=== PATIENT | male | born 1955 | race Caucasian/White ===

== ENCOUNTER 2017-05-26 18:04 | Inpatient (IN) | payer MEDICARE, OTHER ==
[~2017-05-26] VITALS: Ht 167.6 cm; Wt 95.3 kg
[~2017-05-26 18:04] MED LIST: ASPI-991 PO; Blood Sugar Diagnostic IN; CHLO25TA13 PO; DIVA250T4 PO; Folic Acid PO; LIDO30AD10 TP; METO25TA20 PO; Metformin Hcl PO; PANT40TA2 PO; THIA100T13 PO
[2017-05-26] MEDS ORDERED: HYDR-552 PO (20:27)
[2017-05-26] MEDS ORDERED: MAGNESIUM HYDROXIDE 30 ML UDC PO PRN (21:00)
[2017-05-26] MEDS ORDERED: LORAZEPAM 0.5 MG TABLET PO PRN (21:00)
[2017-05-26] MEDS ORDERED: ACETAMINOPHEN 325 MG TABLET PO PRN (21:00)
[2017-05-26] MEDS ORDERED: MAG HYDROX/AL HYDROX/SIMETH 30 ML UDC PO PRN (21:00)
[2017-05-26 21:10] VITALS: BP 142/82
[2017-05-26] MEDS ORDERED: CARB1TAB24 PO (21:34)
[2017-05-26] MEDS: LIDOCAINE 5% (PATCH) 1 EA PATCH TP SCH (22:00)
[2017-05-26] MEDS ORDERED: [UNRECOGNIZED DRUG - OTHER] IN SCH (22:00)
[2017-05-26] MEDS ORDERED: DEXTROSE 50%-WATER 50 ML DISP.SYRIN IV PRN (22:30)
[2017-05-26] MEDS ORDERED: LIDOCAINE 5% (PATCH) 1 EA PATCH TP ONE (22:37)
[2017-05-26] MEDS ORDERED: HYDROCODONE/APAP 5/325MG 1 EACH TABLET ONE (22:42)
[2017-05-26] MEDS: HYDROCODONE/APAP 5/325MG 1 EACH TABLET PO PRN (22:52)
[2017-05-26] MEDS: *INSULIN REGULAR(HUMULIN R)HUM 100 UNIT/ML VIAL SQ PRN (23:03)
[2017-05-27 00:08] VITALS: BP 142/82
[2017-05-27] MEDS ORDERED: HYDROCODONE/APAP 5/325MG 1 EACH TABLET ONE (06:12)
[2017-05-27] MEDS: BLOOD SUGAR DIAGNOSTIC 1 EACH STRIP VI SCH ×4 (07:30→20:27)
[2017-05-27 07:43] LABS: ALBUMIN 3.3 g/dL (3.4-5.0); BILIRUBIN,TOTAL 0.3 mg/dL (0.2-1.0); CALCIUM, SERUM 8.4 mg/dL (8.5-10.1); CREATININE 0.7 mg/dL (0.6-1.3); TOTAL PROTEIN, SERUM 6.6 g/dL (6.4-8.2)
[2017-05-27] MEDS: CARBIDOPA/LEVODOPA 25/250 MG 1 UDTAB PO SCH ×3 (08:46→17:03)
[2017-05-27] MEDS: FOLIC ACID 1 MG TABLET PO SCH (08:46)
[2017-05-27] MEDS: PANTOPRAZOLE 40 MG TABLET.DR PO SCH (08:46)
[2017-05-27] MEDS: ASPIRIN EC 81 MG TABLET.DR PO SCH (08:47)
[2017-05-27] MEDS: METOPROLOL TARTRATE 25 MG TABLET PO SCH ×2 (08:47→21:27)
[2017-05-27] MEDS: THIAMINE HCL 100 MG TABLET PO SCH (08:47)
[2017-05-27] MEDS: METFORMIN 500 MG TABLET PO SCH ×2 (08:47→17:10)
[2017-05-27] MEDS: chlorproMAZINE HCL 25 MG TABLET PO SCH ×4 (09:00→17:03)
[2017-05-27 09:03] VITALS: BP 130/81
[2017-05-27] MEDS ORDERED: DIVALPROEX SODIUM 250 MG TABLET.DR PO SCH (09:30)
[2017-05-27] MEDS: DIVALPROEX SODIUM 250 MG TABLET.DR PO SCH ×2 (09:41→21:23)
[2017-05-27] MEDS: HYDROCODONE/APAP 5/325MG 1 EACH TABLET PO PRN ×2 (11:01→21:25)
[2017-05-27] MEDS: INSULIN REGULAR, HUMAN 100 UNIT/ML 3 ML VIAL SQ PRN (12:21)
[2017-05-27] MEDS: NICOTINE PATCH (7MG) 7 MG PATCH.TD24 TD SCH (12:25)
[2017-05-27 16:00] VITALS: BP 123/81
[2017-05-27] MEDS: *INSULIN REGULAR(HUMULIN R)HUM 100 UNIT/ML VIAL SQ PRN ×2 (17:14→20:29)
[2017-05-27 20:16] VITALS: BP 114/80
[2017-05-27] MEDS: LIDOCAINE 5% (PATCH) 1 EA PATCH TP SCH (22:00)
[2017-05-28] MEDS: ZOLPIDEM TARTRATE 5 MG TABLET PO PRN (01:03)
[2017-05-28] MEDS: LORAZEPAM 1 MG TABLET PO PRN (07:28)
[2017-05-28] MEDS: BLOOD SUGAR DIAGNOSTIC 1 EACH STRIP VI SCH ×4 (07:30→21:04)
[2017-05-28] MEDS: PANTOPRAZOLE 40 MG TABLET.DR PO SCH (07:30)
[2017-05-28 08:00] VITALS: BP 127/84
[2017-05-28] MEDS: INSULIN REGULAR, HUMAN 100 UNIT/ML 3 ML VIAL SQ PRN ×3 (08:17→18:04)
[2017-05-28] MEDS: HYDROCODONE/APAP 5/325MG 1 EACH TABLET PO PRN ×2 (08:59→21:51)
[2017-05-28] MEDS: METFORMIN 500 MG TABLET PO SCH ×2 (08:59→17:00)
[2017-05-28] MEDS: THIAMINE HCL 100 MG TABLET PO SCH (08:59)
[2017-05-28] MEDS: ASPIRIN EC 81 MG TABLET.DR PO SCH (08:59)
[2017-05-28] MEDS: DIVALPROEX SODIUM 250 MG TABLET.DR PO SCH ×2 (08:59→20:36)
[2017-05-28] MEDS: CARBIDOPA/LEVODOPA 25/250 MG 1 UDTAB PO SCH ×3 (09:00→17:00)
[2017-05-28] MEDS: FOLIC ACID 1 MG TABLET PO SCH (09:00)
[2017-05-28] MEDS ORDERED: chlorproMAZINE HCL 25 MG TABLET PO SCH (09:00)
[2017-05-28] MEDS: METOPROLOL TARTRATE 25 MG TABLET PO SCH ×2 (09:03→20:37)
[2017-05-28] MEDS: NICOTINE PATCH (7MG) 7 MG PATCH.TD24 TD SCH (09:06)
[2017-05-28] MEDS: OLANZAPINE 5 MG TABLET PO SCH ×2 (12:39→17:00)
[2017-05-28 16:00] VITALS: BP 107/72
[2017-05-28 19:44] VITALS: BP 122/84
[2017-05-28] MEDS: LIDOCAINE 5% (PATCH) 1 EA PATCH TP SCH (21:04)
[2017-05-28] MEDS: *INSULIN REGULAR(HUMULIN R)HUM 100 UNIT/ML VIAL SQ PRN (21:10)
[2017-05-29] MEDS: BLOOD SUGAR DIAGNOSTIC 1 EACH STRIP VI SCH ×4 (07:52→21:19)
[2017-05-29] MEDS: INSULIN REGULAR, HUMAN 100 UNIT/ML 3 ML VIAL SQ PRN ×3 (07:54→17:38)
[2017-05-29 08:00] VITALS: BP 145/95
[2017-05-29] MEDS: PANTOPRAZOLE 40 MG TABLET.DR PO SCH (08:18)
[2017-05-29] MEDS: METFORMIN 500 MG TABLET PO SCH ×2 (08:27→17:09)
[2017-05-29] MEDS: DIVALPROEX SODIUM 250 MG TABLET.DR PO SCH ×2 (08:27→20:38)
[2017-05-29] MEDS: THIAMINE HCL 100 MG TABLET PO SCH (08:27)
[2017-05-29] MEDS: ASPIRIN EC 81 MG TABLET.DR PO SCH (08:27)
[2017-05-29] MEDS: NICOTINE PATCH (7MG) 7 MG PATCH.TD24 TD SCH (08:27)
[2017-05-29] MEDS: CARBIDOPA/LEVODOPA 25/250 MG 1 UDTAB PO SCH ×3 (08:28→17:10)
[2017-05-29] MEDS: METOPROLOL TARTRATE 25 MG TABLET PO SCH ×2 (08:28→20:38)
[2017-05-29] MEDS: OLANZAPINE 5 MG TABLET PO SCH ×3 (08:28→17:10)
[2017-05-29] MEDS: FOLIC ACID 1 MG TABLET PO SCH (08:28)
[2017-05-29] MEDS: HYDROCODONE/APAP 5/325MG 1 EACH TABLET PO PRN ×2 (12:00→17:10)
[2017-05-29 16:00] VITALS: BP 140/99
[2017-05-29 19:51] VITALS: BP 127/77
[2017-05-29] MEDS: LORAZEPAM 1 MG TABLET PO PRN (20:24)
[2017-05-29] MEDS: ZOLPIDEM TARTRATE 5 MG TABLET PO PRN (21:33)
[2017-05-29] MEDS: LIDOCAINE 5% (PATCH) 1 EA PATCH TP SCH (21:41)
[2017-05-29] MEDS: *INSULIN REGULAR(HUMULIN R)HUM 100 UNIT/ML VIAL SQ PRN (21:54)
[2017-05-30 06:35] LABS: BASOPHILS % (AUTO) 0.5 % (0.0-2.0); EOSINOPHILS # (AUTO) 0.1 /CMM (0.0-0.7); EOSINOPHILS % (AUTO) 1.2 % (0.0-6.0); HEMATOCRIT 42 % (39-51); HEMOGLOBIN 14.3 g/dL (13.5-17.5); LYMPHOCYTES # (AUTO) 2.2 /CMM (0.8-4.8); LYMPHOCYTES % (AUTO) 31.3 % (20.0-44.0); MEAN CORPUSCULAR HEMOGLOBIN 32 PG (26.0-33.0); MEAN CORPUSCULAR HGB CONC 34 g/dl (31.0-36.0); MEAN CORPUSCULAR VOLUME 93 fL (80-96); MONOCYTES # (AUTO) 0.4 /CMM (0.1-1.30); MONOCYTES % (AUTO) 5.2 % (2.0-12.0); NEUTROPHILS # (AUTO) 4.3 /CMM (1.8-8.9); NEUTROPHILS % (AUTO) 61.8 % (43.0-81.0); PLATELET COUNT (AUTO) 268 /CMM (150-450); RDW COEFFICIENT OF VARIATION 13.2 (11.5-15.0); RED BLOOD CELL COUNT(AUTO) 4.47 MIL/uL (4.5-6.0)
[2017-05-30 07:02] LABS: CREATININE 0.7 mg/dL (0.6-1.3); MAGNESIUM 1.8 mg/dL (1.8-2.4); PHOSPHORUS 4.4 mg/dL (2.5-4.9); POTASSIUM 4.2 mmol/L (3.5-5.1)
[2017-05-30] MEDS: INSULIN REGULAR, HUMAN 100 UNIT/ML 3 ML VIAL SQ PRN ×3 (07:46→17:07)
[2017-05-30 08:00] VITALS: BP 100/60
[2017-05-30] MEDS: BLOOD SUGAR DIAGNOSTIC 1 EACH STRIP VI SCH ×4 (08:16→21:31)
[2017-05-30] MEDS: PANTOPRAZOLE 40 MG TABLET.DR PO SCH (08:17)
[2017-05-30] MEDS: OLANZAPINE 5 MG TABLET PO SCH ×3 (08:29→16:56)
[2017-05-30] MEDS: THIAMINE HCL 100 MG TABLET PO SCH (08:29)
[2017-05-30] MEDS: ASPIRIN EC 81 MG TABLET.DR PO SCH (08:29)
[2017-05-30] MEDS: FOLIC ACID 1 MG TABLET PO SCH (08:30)
[2017-05-30] MEDS: DIVALPROEX SODIUM 250 MG TABLET.DR PO SCH ×2 (08:30→20:15)
[2017-05-30] MEDS: CARBIDOPA/LEVODOPA 25/250 MG 1 UDTAB PO SCH ×3 (08:30→16:56)
[2017-05-30] MEDS: HYDROCODONE/APAP 5/325MG 1 EACH TABLET PO PRN ×2 (08:30→23:08)
[2017-05-30] MEDS: METFORMIN 500 MG TABLET PO SCH ×2 (08:30→16:55)
[2017-05-30] MEDS: METOPROLOL TARTRATE 25 MG TABLET PO SCH ×2 (08:30→20:16)
[2017-05-30] MEDS: NICOTINE PATCH (7MG) 7 MG PATCH.TD24 TD SCH (08:30)
[2017-05-30 16:21] VITALS: BP 102/50
[2017-05-30 20:00] VITALS: BP 128/72
[2017-05-30] MEDS: *INSULIN REGULAR(HUMULIN R)HUM 100 UNIT/ML VIAL SQ PRN (21:34)
[2017-05-30] MEDS: LIDOCAINE 5% (PATCH) 1 EA PATCH TP SCH (21:35)
[2017-05-30] MEDS: ZOLPIDEM TARTRATE 5 MG TABLET PO PRN (22:33)
[2017-05-31] MEDS: BLOOD SUGAR DIAGNOSTIC 1 EACH STRIP VI SCH ×4 (07:30→21:19)
[2017-05-31 08:00] VITALS: BP 105/79
[2017-05-31] MEDS: NICOTINE PATCH (7MG) 7 MG PATCH.TD24 TD SCH (08:46)
[2017-05-31] MEDS: METFORMIN 500 MG TABLET PO SCH ×2 (08:46→16:38)
[2017-05-31] MEDS: THIAMINE HCL 100 MG TABLET PO SCH (08:47)
[2017-05-31] MEDS: CARBIDOPA/LEVODOPA 25/250 MG 1 UDTAB PO SCH ×3 (08:47→16:37)
[2017-05-31] MEDS: FOLIC ACID 1 MG TABLET PO SCH (08:47)
[2017-05-31] MEDS: METOPROLOL TARTRATE 25 MG TABLET PO SCH ×2 (08:47→20:19)
[2017-05-31] MEDS: PANTOPRAZOLE 40 MG TABLET.DR PO SCH (08:48)
[2017-05-31] MEDS: ASPIRIN EC 81 MG TABLET.DR PO SCH (08:48)
[2017-05-31] MEDS: OLANZAPINE 5 MG TABLET PO SCH ×3 (08:48→16:38)
[2017-05-31] MEDS: DIVALPROEX SODIUM 250 MG TABLET.DR PO SCH ×3 (08:49→16:38)
[2017-05-31] MEDS: HYDROCODONE/APAP 5/325MG 1 EACH TABLET PO PRN ×3 (10:26→23:05)
[2017-05-31 16:32] VITALS: BP 112/62
[2017-05-31] MEDS: INSULIN REGULAR, HUMAN 100 UNIT/ML 3 ML VIAL SQ PRN (16:48)
[2017-05-31 20:00] VITALS: BP 126/76
[2017-05-31] MEDS: LIDOCAINE 5% (PATCH) 1 EA PATCH TP SCH (21:07)
[2017-05-31] MEDS: ZOLPIDEM TARTRATE 5 MG TABLET PO PRN (21:12)
[2017-05-31] MEDS: *INSULIN REGULAR(HUMULIN R)HUM 100 UNIT/ML VIAL SQ PRN (21:25)
[2017-06-01] MEDS: BLOOD SUGAR DIAGNOSTIC 1 EACH STRIP VI SCH ×4 (07:30→21:30)
[2017-06-01 08:20] VITALS: BP 130/80
[2017-06-01] MEDS: METFORMIN 500 MG TABLET PO SCH ×2 (08:49→16:18)
[2017-06-01] MEDS: THIAMINE HCL 100 MG TABLET PO SCH (08:49)
[2017-06-01] MEDS: DIVALPROEX SODIUM 250 MG TABLET.DR PO SCH ×3 (08:49→16:18)
[2017-06-01] MEDS: PANTOPRAZOLE 40 MG TABLET.DR PO SCH (08:49)
[2017-06-01] MEDS: METOPROLOL TARTRATE 25 MG TABLET PO SCH ×2 (08:49→21:27)
[2017-06-01] MEDS: FOLIC ACID 1 MG TABLET PO SCH (08:50)
[2017-06-01] MEDS: NICOTINE PATCH (7MG) 7 MG PATCH.TD24 TD SCH (08:50)
[2017-06-01] MEDS: CARBIDOPA/LEVODOPA 25/250 MG 1 UDTAB PO SCH ×3 (08:50→16:18)
[2017-06-01] MEDS: OLANZAPINE 5 MG TABLET PO SCH ×3 (08:50→16:19)
[2017-06-01] MEDS: ASPIRIN EC 81 MG TABLET.DR PO SCH (08:50)
[2017-06-01] MEDS: HYDROCODONE/APAP 5/325MG 1 EACH TABLET PO PRN ×2 (09:01→18:31)
[2017-06-01] MEDS: LORAZEPAM 1 MG TABLET PO PRN (11:13)
[2017-06-01 16:08] VITALS: BP 131/85
[2017-06-01] MEDS: INSULIN REGULAR, HUMAN 100 UNIT/ML 3 ML VIAL SQ PRN (17:15)
[2017-06-01 20:00] VITALS: BP 134/75
[2017-06-01] MEDS: *INSULIN REGULAR(HUMULIN R)HUM 100 UNIT/ML VIAL SQ PRN (21:21)
[2017-06-01] MEDS: LIDOCAINE 5% (PATCH) 1 EA PATCH TP SCH (21:24)
[2017-06-01] MEDS: ZOLPIDEM TARTRATE 5 MG TABLET PO PRN (22:19)
[2017-06-02] MEDS: BLOOD SUGAR DIAGNOSTIC 1 EACH STRIP VI SCH ×4 (07:30→21:28)
[2017-06-02 08:00] VITALS: BP 120/69
[2017-06-02] MEDS: FOLIC ACID 1 MG TABLET PO SCH (08:53)
[2017-06-02] MEDS: THIAMINE HCL 100 MG TABLET PO SCH (08:53)
[2017-06-02] MEDS: NICOTINE PATCH (7MG) 7 MG PATCH.TD24 TD SCH (08:53)
[2017-06-02] MEDS: ASPIRIN EC 81 MG TABLET.DR PO SCH (08:53)
[2017-06-02] MEDS: CARBIDOPA/LEVODOPA 25/250 MG 1 UDTAB PO SCH ×3 (08:53→16:22)
[2017-06-02] MEDS: OLANZAPINE 5 MG TABLET PO SCH ×3 (08:53→16:22)
[2017-06-02] MEDS: METFORMIN 500 MG TABLET PO SCH ×2 (08:54→16:22)
[2017-06-02] MEDS: METOPROLOL TARTRATE 25 MG TABLET PO SCH ×2 (08:54→21:26)
[2017-06-02] MEDS: DIVALPROEX SODIUM 250 MG TABLET.DR PO SCH ×3 (08:54→16:22)
[2017-06-02] MEDS: PANTOPRAZOLE 40 MG TABLET.DR PO SCH (08:54)
[2017-06-02] MEDS: HYDROCODONE/APAP 5/325MG 1 EACH TABLET PO PRN (09:00)
[2017-06-02] MEDS: glipiZIDE 5 MG TABLET PO SCH ×2 (10:17→16:22)
[2017-06-02] MEDS: INSULIN REGULAR, HUMAN 100 UNIT/ML 3 ML VIAL SQ PRN ×2 (11:49→16:23)
[2017-06-02] MEDS: LORAZEPAM 1 MG TABLET PO PRN (14:41)
[2017-06-02 16:02] VITALS: BP 133/78
[2017-06-02] MEDS: LIDOCAINE 5% (PATCH) 1 EA PATCH TP SCH (21:22)
[2017-06-02] MEDS: *INSULIN REGULAR(HUMULIN R)HUM 100 UNIT/ML VIAL SQ PRN (21:27)
[2017-06-02 21:55] VITALS: BP 133/78
[2017-06-02] MEDS: ZOLPIDEM TARTRATE 5 MG TABLET PO PRN (22:18)
[2017-06-03 08:00] VITALS: BP 116/70
[2017-06-03] MEDS: glipiZIDE 5 MG TABLET PO SCH ×2 (08:33→16:46)
[2017-06-03] MEDS: NICOTINE PATCH (7MG) 7 MG PATCH.TD24 TD SCH (08:33)
[2017-06-03] MEDS: FOLIC ACID 1 MG TABLET PO SCH (08:33)
[2017-06-03] MEDS: ASPIRIN EC 81 MG TABLET.DR PO SCH (08:33)
[2017-06-03] MEDS: PANTOPRAZOLE 40 MG TABLET.DR PO SCH (08:33)
[2017-06-03] MEDS: METFORMIN 500 MG TABLET PO SCH ×2 (08:33→16:45)
[2017-06-03] MEDS: DIVALPROEX SODIUM 250 MG TABLET.DR PO SCH ×3 (08:33→16:45)
[2017-06-03] MEDS: THIAMINE HCL 100 MG TABLET PO SCH (08:33)
[2017-06-03] MEDS: BLOOD SUGAR DIAGNOSTIC 1 EACH STRIP VI SCH ×4 (08:34→21:35)
[2017-06-03] MEDS: CARBIDOPA/LEVODOPA 25/250 MG 1 UDTAB PO SCH ×3 (08:34→16:45)
[2017-06-03] MEDS: METOPROLOL TARTRATE 25 MG TABLET PO SCH ×2 (08:34→21:35)
[2017-06-03] MEDS: OLANZAPINE 5 MG TABLET PO SCH ×3 (08:56→16:45)
[2017-06-03] MEDS: HYDROCODONE/APAP 5/325MG 1 EACH TABLET PO PRN ×2 (11:00→17:12)
[2017-06-03] MEDS: INSULIN REGULAR, HUMAN 100 UNIT/ML 3 ML VIAL SQ PRN (12:48)
[2017-06-03] MEDS: LORAZEPAM 1 MG TABLET PO PRN (13:48)
[2017-06-03 16:00] VITALS: BP 100/61
[2017-06-03 19:43] VITALS: BP 122/78
[2017-06-03] MEDS: LIDOCAINE 5% (PATCH) 1 EA PATCH TP SCH (21:34)
[2017-06-03] MEDS: *INSULIN REGULAR(HUMULIN R)HUM 100 UNIT/ML VIAL SQ PRN (21:34)
[2017-06-03 21:48] VITALS: BP 125/72
[2017-06-04] MEDS: glipiZIDE 5 MG TABLET PO SCH ×2 (07:30→16:33)
[2017-06-04] MEDS: BLOOD SUGAR DIAGNOSTIC 1 EACH STRIP VI SCH ×4 (07:30→22:55)
[2017-06-04] MEDS: PANTOPRAZOLE 40 MG TABLET.DR PO SCH (07:30)
[2017-06-04 08:00] VITALS: BP 115/68
[2017-06-04] MEDS: OLANZAPINE 5 MG TABLET PO SCH (08:30)
[2017-06-04] MEDS: METFORMIN 500 MG TABLET PO SCH ×2 (08:37→16:33)
[2017-06-04] MEDS: METOPROLOL TARTRATE 25 MG TABLET PO SCH ×2 (08:39→20:37)
[2017-06-04] MEDS: ASPIRIN EC 81 MG TABLET.DR PO SCH (08:39)
[2017-06-04] MEDS: THIAMINE HCL 100 MG TABLET PO SCH (08:39)
[2017-06-04] MEDS: FOLIC ACID 1 MG TABLET PO SCH (08:39)
[2017-06-04] MEDS: CARBIDOPA/LEVODOPA 25/250 MG 1 UDTAB PO SCH ×3 (08:40→16:33)
[2017-06-04] MEDS: NICOTINE PATCH (7MG) 7 MG PATCH.TD24 TD SCH (08:41)
[2017-06-04] MEDS: DIVALPROEX SODIUM 250 MG TABLET.DR PO SCH ×3 (08:41→16:33)
[2017-06-04] MEDS: HYDROCODONE/APAP 5/325MG 1 EACH TABLET PO PRN ×3 (09:54→22:29)
[2017-06-04] MEDS: LORAZEPAM 1 MG TABLET PO PRN ×2 (11:41→18:39)
[2017-06-04 16:00] VITALS: BP 108/66
[2017-06-04] MEDS: INSULIN REGULAR, HUMAN 100 UNIT/ML 3 ML VIAL SQ PRN (17:59)
[2017-06-04 20:44] VITALS: BP 149/82
[2017-06-04] MEDS ORDERED: OLANZAPINE 5 MG TABLET PO SCH (22:00)
[2017-06-04] MEDS: LIDOCAINE 5% (PATCH) 1 EA PATCH TP SCH (22:31)
[2017-06-04] MEDS: *INSULIN REGULAR(HUMULIN R)HUM 100 UNIT/ML VIAL SQ PRN (23:02)
[2017-06-05] MEDS: BLOOD SUGAR DIAGNOSTIC 1 EACH STRIP VI SCH ×2 (07:30→12:00)
[2017-06-05 08:00] VITALS: BP 114/71
[2017-06-05 08:17] VITALS: BP 114/73
[2017-06-05] MEDS: glipiZIDE 5 MG TABLET PO SCH (08:17)
[2017-06-05] MEDS: METOPROLOL TARTRATE 25 MG TABLET PO SCH (08:17)
[2017-06-05] MEDS: PANTOPRAZOLE 40 MG TABLET.DR PO SCH (08:17)
[2017-06-05] MEDS: METFORMIN 500 MG TABLET PO SCH (08:18)
[2017-06-05] MEDS: DIVALPROEX SODIUM 250 MG TABLET.DR PO SCH ×2 (08:18→13:08)
[2017-06-05] MEDS: CARBIDOPA/LEVODOPA 25/250 MG 1 UDTAB PO SCH ×2 (08:18→13:08)
[2017-06-05] MEDS: THIAMINE HCL 100 MG TABLET PO SCH (08:18)
[2017-06-05] MEDS: NICOTINE PATCH (7MG) 7 MG PATCH.TD24 TD SCH (08:18)
[2017-06-05] MEDS: FOLIC ACID 1 MG TABLET PO SCH (08:18)
[2017-06-05] MEDS: ASPIRIN EC 81 MG TABLET.DR PO SCH (08:18)
[2017-06-05] MEDS: HYDROCODONE/APAP 5/325MG 1 EACH TABLET PO PRN (08:40)
[2017-06-05] MEDS: LORAZEPAM 1 MG TABLET PO PRN (11:01)
== END 2017-06-05 13:40 | DRG 885 ==
LOC: GPS 19:30
PROVIDERS: ADMIT Psychiatry & Neurology Psychiatry
PROC: 0HBRXZZ Excision of Toe Nail, External Approach (ICD-10-PCS; principal; 2017-05-31)
DX: F31.5 Bipolar disorder, current episode depressed, severe, with psychotic features (principal); E11.65 Type 2 diabetes mellitus with hyperglycemia; R45.851 Suicidal ideations; F25.0 Schizoaffective disorder, bipolar type; Z59.0 Homelessness; G20 Parkinson's disease; I10 Essential (primary) hypertension; Z86.73 Personal history of transient ischemic attack (TIA), and cerebral infarction without residual deficits; K21.9 Gastro-esophageal reflux disease without esophagitis; D64.9 Anemia, unspecified; E78.5 Hyperlipidemia, unspecified; F41.9 Anxiety disorder, unspecified; B35.1 Tinea unguium; L03.019 Cellulitis of unspecified finger; L60.0 Ingrowing nail; Z87.891 Personal history of nicotine dependence; G89.29 Other chronic pain; M54.9 Dorsalgia, unspecified; F29 Unspecified psychosis not due to a substance or known physiological condition
CPT/HCPCS: 36415; 80048-TC; 80053-TC; 80061-TC; 80164-TC; 82962-TC; 83735-TC; 84100-TC; 85025-TC; 87081-TC; 97001-TC; J1815; Q0161

== ENCOUNTER 2020-12-07 11:42 | Emergency (ER) | payer MEDICARE, MEDICAID ==
[~2020-12-07] VITALS: Ht 170.2 cm; Wt 90.7 kg
[2020-12-07 11:42] VITALS: BP 146/93
[~2020-12-07 11:42] MED LIST changes: +ASPI-1420 PO; -ASPI-991 PO; +CARB1TAB24 PO; +HYDR-4384 PO
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
[2020-12-07] MEDS ORDERED: IV NS 0.9% 1,000 ML BAG IV ONE (12:00)
--- NOTE | 2020-12-07 12:05 | NUR ---
REFUSED TO CONTINUE WITH TREATMENT SAYING"I/M GOING TO A STIP CLUB"
--- NOTE | 2020-12-07 12:06 | NUR ---
REFUSED LABS AND EKG ORDERED
== END 2020-12-07 12:48 | disposition left against medical advice (07) ==
LOC: ER 11:54
DX: E11.65 Type 2 diabetes mellitus with hyperglycemia (principal); R46.89 Other symptoms and signs involving appearance and behavior; I10 Essential (primary) hypertension; Z59.0 Homelessness; Z96.651 Presence of right artificial knee joint; Z88.8 Allergy status to other drugs, medicaments and biological substances; Z79.82 Long term (current) use of aspirin; Z79.899 Other long term (current) drug therapy

== ENCOUNTER 2024-02-21 18:37 | Inpatient (IN) | payer MEDICARE, OTHER ==
[~2024-02-21] VITALS: Ht 175.3 cm; Wt 93.9 kg
[2024-02-21 20:00] VITALS: BP 139/68; TEMP 98.2; O2SAT 96
[2024-02-21] MEDS ORDERED: MAGNESIUM HYDROXIDE 30 ML UDC PO PRN (20:00)
[2024-02-21] MEDS ORDERED: FLUO20CA42 PO (20:16)
[2024-02-21] MEDS ORDERED: AMLO-213 PO (20:17)
[2024-02-21] MEDS ORDERED: QUET100T PO (20:18)
[2024-02-21] MEDS ORDERED: ZOLP5TAB8 PO (20:19)
[2024-02-21] MEDS ORDERED: ATEN25TA PO (20:20)
[2024-02-21] MEDS ORDERED: CARB1TAB40 PO (20:21)
[2024-02-21] MEDS ORDERED: ASPI-1420 PO (20:49)
[2024-02-21] MEDS: BLOOD SUGAR DIAGNOSTIC 1 EACH STRIP IN ONE (20:51)
[2024-02-21] MEDS ORDERED: ZOLPIDEM TARTRATE 5 MG TABLET PO PRN (21:00)
[2024-02-21] MEDS ORDERED: DEXTROSE 50%-WATER 50 ML DISP.SYRIN IV PRN (21:00)
[2024-02-21] MEDS: BLOOD SUGAR DIAGNOSTIC 1 EACH STRIP IN SCH (22:00)
[2024-02-21 22:40] VITALS: BP 123/76; TEMP 98; O2SAT 98
[2024-02-22] MEDS ORDERED: Z GUARD REMEDY 4 OZ OINT TP PRN
[2024-02-22 07:32] LABS: BASOPHILS % (AUTO) 0.2 % (0.0-2.0); EOSINOPHILS # (AUTO) 0.1 K/uL (0.0-0.7); EOSINOPHILS % (AUTO) 2.1 % (0.0-6.0); HEMATOCRIT 21 % (39-51); HEMOGLOBIN 7.4 g/dL (13.5-17.5); LYMPHOCYTES # (AUTO) 0.9 K/uL (0.8-4.8); LYMPHOCYTES % (AUTO) 29.9 % (20.0-44.0); MEAN CORPUSCULAR HEMOGLOBIN 34 PG (26.0-33.0); MEAN CORPUSCULAR HGB CONC 35 g/dl (31.0-36.0); MEAN CORPUSCULAR VOLUME 98 fL (80-96); MONOCYTES # (AUTO) 0.2 K/uL (0.1-1.30); MONOCYTES % (AUTO) 5.4 % (2.0-12.0); NEUTROPHILS # (AUTO) 1.8 K/uL (1.8-8.9); NEUTROPHILS % (AUTO) 62.4 % (43.0-81.0); PLATELET COUNT (AUTO) 104 K/uL (150-450); RED BLOOD CELL COUNT(AUTO) 2.19 MIL/uL (4.5-6.0); RED CELL DISTRIBUTION WIDTH 16.9 % (11.5-15.0); WHITE BLOOD COUNT (AUTO) 2.9 K/uL (4.3-11.0)
[2024-02-22 07:52] LABS: CALCIUM, SERUM 9.1 mg/dL (8.5-10.1); CREATININE 0.9 mg/dL (0.6-1.3); POTASSIUM 3.5 mmol/L (3.5-5.1)
[2024-02-22 08:00] VITALS: BP 109/64; TEMP 97.8; O2SAT 95
[2024-02-22] MEDS: PANTOPRAZOLE 40 MG TABLET.DR PO SCH (08:53)
[2024-02-22] MEDS: ASPIRIN EC 81 MG TABLET.DR PO SCH (08:54)
[2024-02-22] MEDS: CARBIDOPA/LEV CR 50/200 MG 1 UDTAB.SA PO SCH (08:54)
[2024-02-22] MEDS: METFORMIN 500 MG TABLET PO SCH (08:54)
[2024-02-22] MEDS: AMLODIPINE BESYLATE 10 MG TABLET PO SCH (08:55)
[2024-02-22] MEDS: THIAMINE HCL 100 MG TABLET PO SCH (08:55)
[2024-02-22] MEDS: ATENOLOL 25 MG TABLET PO SCH (08:56)
[2024-02-22] MEDS: FOLIC ACID 1 MG TABLET PO SCH (08:58)
[2024-02-22] MEDS: clonazePAM 0.5 MG TABLET PO PRN (13:09)
[2024-02-22] MEDS: HYDROCODONE/APAP 5/325MG TABLET PO PRN (14:08)
[2024-02-22 16:00] VITALS: BP 158/80; TEMP 97.9; O2SAT 100
[2024-02-22] MEDS: QUETIAPINE FUMARATE 25 MG TABLET PO SCH (17:10)
[2024-02-22 20:24] VITALS: BP 109/65; TEMP 98; O2SAT 100
[2024-02-22] MEDS: QUETIAPINE FUMARATE 100 MG TABLET PO SCH (21:37)
[2024-02-23 08:00] VITALS: BP 119/62; TEMP 97.9; O2SAT 97
[2024-02-23] MEDS: Fluoxetine 10 mg capsule PO SCH (09:03)
[2024-02-23] MEDS: clonazePAM 0.5 MG TABLET PO PRN (14:08)
[2024-02-23] MEDS: MAG HYDROX/AL HYDROX/SIMETH 30 ML UDC PO PRN (15:47)
[2024-02-23 16:00] VITALS: BP 117/67; TEMP 97.8; O2SAT 100
[2024-02-23 20:42] VITALS: BP_SYST 128; BP_SYST 170; BP_DIAS 71; BP_DIAS 88; TEMP 98.1; O2SAT 96
[2024-02-23] MEDS: INSULIN REGULAR, HUMAN 100 UNIT/ML 3 ML VIAL SQ PRN (22:44)
[2024-02-24] MEDS: TEMAZEPAM 7.5 MG CAPSULE PO PRN (00:03)
[2024-02-24 08:00] VITALS: BP 128/60; TEMP 98.2; O2SAT 98
[2024-02-24] MEDS: NEOMY SULF/BACITRAC ZN/POLY 15 GM TUBE TP SCH (12:00)
[2024-02-24 16:00] VITALS: BP 117/63; TEMP 97.5; O2SAT 100
[2024-02-24 20:50] VITALS: BP 130/73; TEMP 97.8; O2SAT 100
[2024-02-25 08:00] VITALS: BP 136/67; TEMP 97.9; O2SAT 97
[2024-02-25 16:00] VITALS: BP 115/69; TEMP 97.9; O2SAT 98
[2024-02-25 19:34] LABS: BASOPHILS # (AUTO) 0.1 K/uL (0.0-0.2); BASOPHILS % (AUTO) 1.5 % (0.0-2.0); EOSINOPHILS % (AUTO) 0.9 % (0.0-6.0); HEMATOCRIT 21 % (39-51); HEMOGLOBIN 7.2 g/dL (13.5-17.5); LYMPHOCYTES # (AUTO) 1.1 K/uL (0.8-4.8); LYMPHOCYTES % (AUTO) 28.4 % (20.0-44.0); MEAN CORPUSCULAR HEMOGLOBIN 34 PG (26.0-33.0); MEAN CORPUSCULAR HGB CONC 35 g/dl (31.0-36.0); MEAN CORPUSCULAR VOLUME 97 fL (80-96); MONOCYTES # (AUTO) 0.1 K/uL (0.1-1.30); MONOCYTES % (AUTO) 3.1 % (2.0-12.0); NEUTROPHILS # (AUTO) 2.5 K/uL (1.8-8.9); NEUTROPHILS % (AUTO) 66.1 % (43.0-81.0); PLATELET COUNT (AUTO) 103 K/uL (150-450); RED BLOOD CELL COUNT(AUTO) 2.13 MIL/uL (4.5-6.0); RED CELL DISTRIBUTION WIDTH 16.9 % (11.5-15.0); WHITE BLOOD COUNT (AUTO) 3.7 K/uL (4.3-11.0)
[2024-02-25 19:53] LABS: INR 1.07 (0.91-1.10); PARTIAL THROMBOPLASTIN TIME 27.4 SEC (24.3-34.3); PROTHROMBIN TIME 11.3 SECS (9.2-11.1)
[2024-02-25 20:23] LABS: C-REACTIVE PROTEIN 0.28 mg/dL (0.0-0.30); THYROID STIMULATING HORMONE 1.309 uIU/mL (0.358-3.74)
[2024-02-25 20:37] LABS: ALBUMIN 2.4 g/dL (3.4-5.0); BILIRUBIN,DIRECT 0.1 mg/dL (0.0-0.2); BILIRUBIN,TOTAL 0.2 mg/dL (0.2-1.0); TOTAL PROTEIN, SERUM 9.6 g/dL (6.4-8.2)
[2024-02-25 21:09] VITALS: BP 139/77; TEMP 97.9; O2SAT 99
[2024-02-25 22:40] LABS: RHEUMATOID FACTOR SCREEN NEGATIVE (NEGATIVE)
[2024-02-26 08:00] VITALS: BP 130/68; TEMP 98.6; O2SAT 98
[2024-02-26 10:49] LABS: BASOPHILS % (AUTO) 0.1 % (0.0-2.0); EOSINOPHILS # (AUTO) 0.1 K/uL (0.0-0.7); EOSINOPHILS % (AUTO) 1.5 % (0.0-6.0); HEMATOCRIT 24 % (39-51); LYMPHOCYTES # (AUTO) 1.2 K/uL (0.8-4.8); LYMPHOCYTES % (AUTO) 28.5 % (20.0-44.0); MEAN CORPUSCULAR HEMOGLOBIN 34 PG (26.0-33.0); MEAN CORPUSCULAR HGB CONC 34 g/dl (31.0-36.0); MEAN CORPUSCULAR VOLUME 99 fL (80-96); MONOCYTES # (AUTO) 0.2 K/uL (0.1-1.30); MONOCYTES % (AUTO) 3.8 % (2.0-12.0); NEUTROPHILS # (AUTO) 2.7 K/uL (1.8-8.9); NEUTROPHILS % (AUTO) 66.1 % (43.0-81.0); PLATELET COUNT (AUTO) 122 K/uL (150-450); RED BLOOD CELL COUNT(AUTO) 2.39 MIL/uL (4.5-6.0); RED CELL DISTRIBUTION WIDTH 16.9 % (11.5-15.0); WHITE BLOOD COUNT (AUTO) 4.1 K/uL (4.3-11.0)
[2024-02-26 16:00] VITALS: BP 131/71; TEMP 98.6; O2SAT 98
[2024-02-26] MEDS: FERROUS SULFATE (325 MG) 325 MG/TAB TABLET PO SCH (17:19)
[2024-02-26 21:03] VITALS: BP 122/67; TEMP 98.2; O2SAT 97
[2024-02-27 08:00] VITALS: BP 135/66; TEMP 98; O2SAT 96
[2024-02-27 08:06] LABS: FOLIC ACID 14.4 ng/mL (>3.0); IMMUNOGLOBULIN A, SERUM 18 mg/dL (61-437); IMMUNOGLOBULIN G, SERUM 4735 mg/dL (603-1613); IMMUNOGLOBULIN M, SERUM 10 mg/dL (20-172)
[2024-02-27 11:07] LABS: *ANA ANTI-CENTROMERE B AB <0.2 AI (0.0-0.9); *ANA ANTI-DNA(DS) AB, QN <1 IU/mL (0-9); *ANA ANTI-JO-1 <0.2 AI (0.0-0.9); *ANA ANTICHROMATIN ANTIBODY <0.2 AI (0.0-0.9); *ANA RNP ANTIBODIES <0.2 AI (0.0-0.9); *ANA SJOGREN'S ANTI-SS-A <0.2 AI (0.0-0.9); *ANA SJOGREN'S ANTI-SS-B <0.2 AI (0.0-0.9); *ANAANTI-SCLERODERMA-70 AB <0.2 AI (0.0-0.9); *ANASMITH AB <0.2 AI (0.0-0.9); HEPATITIS B SURFACE AB Non Reactive (.)
[2024-02-27 12:09] LABS: *SPE A/G RATIO 0.6 (0.7-1.7); *SPE ALBUMIN 3.6 g/dL (2.9-4.4); *SPE ALPHA-1-GLOBULIN 0.4 g/dL (0.0-0.4); *SPE ALPHA-2-GLOBULIN 0.9 g/dL (0.4-1.0); *SPE BETA GLOBULIN 0.9 g/dL (0.7-1.3); *SPE GLOBULIN, TOTAL 6.1 g/dL (2.2-3.9); *SPE M-SPIKE 3.7 g/dL (Not Observed); *SPE PROTEIN TOTAL 9.7 g/dL (6.0-8.5); *SPEGAMMA GLOBULIN 3.9 g/dL (0.4-1.8)
[2024-02-27 16:00] VITALS: BP 125/71; TEMP 98; O2SAT 98
[2024-02-27 20:00] VITALS: BP 134/72; TEMP 98.3; O2SAT 100
[2024-02-28 08:00] VITALS: BP 145/78; TEMP 98; O2SAT 100
[2024-02-28] MEDS: Fluoxetine 10 mg capsule PO SCH (08:16)
[2024-02-28 16:00] VITALS: BP 130/68; TEMP 98.2; O2SAT 98
[2024-02-28 20:00] VITALS: BP 174/93; TEMP 98.1; O2SAT 100
[2024-02-29 06:45] LABS: BASOPHILS % (AUTO) 0.2 % (0.0-2.0); EOSINOPHILS % (AUTO) 1.3 % (0.0-6.0); HEMATOCRIT 23 % (39-51); HEMOGLOBIN 7.8 g/dL (13.5-17.5); LYMPHOCYTES # (AUTO) 0.9 K/uL (0.8-4.8); LYMPHOCYTES % (AUTO) 25.8 % (20.0-44.0); MEAN CORPUSCULAR HEMOGLOBIN 33 PG (26.0-33.0); MEAN CORPUSCULAR HGB CONC 34 g/dl (31.0-36.0); MEAN CORPUSCULAR VOLUME 97 fL (80-96); MONOCYTES # (AUTO) 0.1 K/uL (0.1-1.30); MONOCYTES % (AUTO) 4.3 % (2.0-12.0); NEUTROPHILS # (AUTO) 2.3 K/uL (1.8-8.9); NEUTROPHILS % (AUTO) 68.4 % (43.0-81.0); PLATELET COUNT (AUTO) 137 K/uL (150-450); RED BLOOD CELL COUNT(AUTO) 2.35 MIL/uL (4.5-6.0); RED CELL DISTRIBUTION WIDTH 16.7 % (11.5-15.0); WHITE BLOOD COUNT (AUTO) 3.3 K/uL (4.3-11.0)
[2024-02-29 06:57] LABS: INR 1.15 (0.91-1.10); PARTIAL THROMBOPLASTIN TIME 26.7 SEC (24.3-34.3); PROTHROMBIN TIME 12.1 SECS (9.2-11.1)
[2024-02-29 07:43] LABS: CALCIUM, SERUM 8.8 mg/dL (8.5-10.1); CREATININE 1.2 mg/dL (0.6-1.3); POTASSIUM 3.6 mmol/L (3.5-5.1)
[2024-02-29 08:00] VITALS: BP 120/60; TEMP 97.5; O2SAT 95
[2024-02-29] MEDS: LIDOCAINE 1% INJ 50 ML MDV IJ ONE (14:00)
[2024-02-29] MEDS: LORAZEPAM 1 MG TABLET PO ONE ×2 (14:00→18:20)
[2024-02-29 16:00] VITALS: BP 136/71; TEMP 98; O2SAT 100
[2024-02-29] MEDS: MORPHINE SULFATE INJ 2 MG/ML DISP.SYRIN IM PRN (18:21)
[2024-02-29 19:46] LABS: BASOPHILS % (AUTO) 0.2 % (0.0-2.0); HEMATOCRIT 26 % (39-51); HEMOGLOBIN 8.9 g/dL (13.5-17.5); LYMPHOCYTES # (AUTO) 1.4 K/uL (0.8-4.8); LYMPHOCYTES % (AUTO) 31.8 % (20.0-44.0); MEAN CORPUSCULAR HEMOGLOBIN 33 PG (26.0-33.0); MEAN CORPUSCULAR HGB CONC 34 g/dl (31.0-36.0); MEAN CORPUSCULAR VOLUME 98 fL (80-96); MONOCYTES # (AUTO) 0.2 K/uL (0.1-1.30); MONOCYTES % (AUTO) 4.1 % (2.0-12.0); NEUTROPHILS # (AUTO) 2.8 K/uL (1.8-8.9); NEUTROPHILS % (AUTO) 62.9 % (43.0-81.0); PLATELET COUNT (AUTO) 142 K/uL (150-450); RED BLOOD CELL COUNT(AUTO) 2.67 MIL/uL (4.5-6.0); RED CELL DISTRIBUTION WIDTH 16.8 % (11.5-15.0); WHITE BLOOD COUNT (AUTO) 4.4 K/uL (4.3-11.0)
[2024-02-29 20:00] VITALS: BP 136/71; TEMP 98.2; O2SAT 100
[2024-03-01 08:00] VITALS: BP 110/60; TEMP 98.4; O2SAT 99
[2024-03-01 16:00] VITALS: BP 104/52; TEMP 98.3; O2SAT 98
[2024-03-01] MEDS: ACETAMINOPHEN 325 MG TABLET PO PRN (21:21)
[2024-03-02 08:00] VITALS: BP 149/79; TEMP 97.9; O2SAT 99
[2024-03-02 16:00] VITALS: BP 139/60; TEMP 98.6; O2SAT 98
[2024-03-02 16:35] LABS: BASOPHILS % (AUTO) 0.2 % (0.0-2.0); EOSINOPHILS % (AUTO) 0.7 % (0.0-6.0); HEMATOCRIT 25 % (39-51); HEMOGLOBIN 8.7 g/dL (13.5-17.5); LYMPHOCYTES # (AUTO) 1.3 K/uL (0.8-4.8); LYMPHOCYTES % (AUTO) 29.1 % (20.0-44.0); MEAN CORPUSCULAR HEMOGLOBIN 34 PG (26.0-33.0); MEAN CORPUSCULAR HGB CONC 35 g/dl (31.0-36.0); MEAN CORPUSCULAR VOLUME 97 fL (80-96); MONOCYTES # (AUTO) 0.2 K/uL (0.1-1.30); MONOCYTES % (AUTO) 3.8 % (2.0-12.0); NEUTROPHILS % (AUTO) 66.2 % (43.0-81.0); PLATELET COUNT (AUTO) 141 K/uL (150-450); RED BLOOD CELL COUNT(AUTO) 2.59 MIL/uL (4.5-6.0); RED CELL DISTRIBUTION WIDTH 16.6 % (11.5-15.0); WHITE BLOOD COUNT (AUTO) 4.5 K/uL (4.3-11.0)
[2024-03-02 20:00] VITALS: BP 154/76; TEMP 98.6; O2SAT 100
[2024-03-02 20:49] VITALS: BP 154/76; TEMP 98.6; O2SAT 100
[2024-03-03 08:00] VITALS: BP 114/55; TEMP 98.1; O2SAT 98
[2024-03-03] MEDS: CYANOCOBALAMIN 100 MCG TABLET PO SCH (08:17)
[2024-03-03 16:00] VITALS: BP 131/64; TEMP 97.8; O2SAT 100
[2024-03-03] MEDS: QUETIAPINE FUMARATE 25 MG TABLET PO SCH ×2 (16:42→21:21)
[2024-03-03 20:42] VITALS: BP 126/67; TEMP 98.7; O2SAT 100
[2024-03-04 08:00] VITALS: BP 128/66; TEMP 97.7; O2SAT 99
[2024-03-04 16:00] VITALS: BP 133/72; TEMP 97.9; O2SAT 98
[2024-03-04 20:14] VITALS: BP 119/74; TEMP 98.1; O2SAT 97
[2024-03-05 07:21] LABS: BASOPHILS % (AUTO) 0.3 % (0.0-2.0); EOSINOPHILS # (AUTO) 0.1 K/uL (0.0-0.7); HEMATOCRIT 22 % (39-51); HEMOGLOBIN 7.5 g/dL (13.5-17.5); LYMPHOCYTES # (AUTO) 1.1 K/uL (0.8-4.8); LYMPHOCYTES % (AUTO) 34.4 % (20.0-44.0); MEAN CORPUSCULAR HEMOGLOBIN 34 PG (26.0-33.0); MEAN CORPUSCULAR HGB CONC 35 g/dl (31.0-36.0); MEAN CORPUSCULAR VOLUME 97 fL (80-96); MONOCYTES # (AUTO) 0.2 K/uL (0.1-1.30); MONOCYTES % (AUTO) 4.7 % (2.0-12.0); NEUTROPHILS # (AUTO) 1.9 K/uL (1.8-8.9); NEUTROPHILS % (AUTO) 58.6 % (43.0-81.0); PLATELET COUNT (AUTO) 131 K/uL (150-450); RED BLOOD CELL COUNT(AUTO) 2.24 MIL/uL (4.5-6.0); RED CELL DISTRIBUTION WIDTH 16.9 % (11.5-15.0); WHITE BLOOD COUNT (AUTO) 3.2 K/uL (4.3-11.0)
[2024-03-05 08:00] VITALS: BP 116/60; TEMP 97.6; O2SAT 97
[2024-03-05 08:35] VITALS: BP 113/60
== END 2024-03-05 10:35 | DRG 885 ==
LOC: GPS 19:04
PROVIDERS: ADMIT Psychiatry & Neurology Psychiatry; ATTEND Internal Medicine
PROC: 07DR3ZX Extraction of Iliac Bone Marrow, Percutaneous Approach, Diagnostic (ICD-10-PCS; principal; 2024-02-29)
DX: F25.1 Schizoaffective disorder, depressive type (principal); Z59.00 Homelessness unspecified; D61.818 Other pancytopenia; F10.10 Alcohol abuse, uncomplicated; Y90.9 Presence of alcohol in blood, level not specified; Z20.822 Contact with and (suspected) exposure to COVID-19; D47.2 Monoclonal gammopathy; Z73.6 Limitation of activities due to disability; K21.9 Gastro-esophageal reflux disease without esophagitis; K29.70 Gastritis, unspecified, without bleeding; I25.2 Old myocardial infarction; D50.9 Iron deficiency anemia, unspecified; F41.9 Anxiety disorder, unspecified; F32.A Depression, unspecified; Z87.891 Personal history of nicotine dependence; Z80.8 Family history of malignant neoplasm of other organs or systems; Z82.49 Family history of ischemic heart disease and other diseases of the circulatory system; Z79.899 Other long term (current) drug therapy; Z79.84 Long term (current) use of oral hypoglycemic drugs; Z79.82 Long term (current) use of aspirin; F39 Unspecified mood [affective] disorder; F29 Unspecified psychosis not due to a substance or known physiological condition; Z86.73 Personal history of transient ischemic attack (TIA), and cerebral infarction without residual deficits; Z68.30 Body mass index [BMI] 30.0-30.9, adult; E66.9 Obesity, unspecified; D53.9 Nutritional anemia, unspecified; D63.8 Anemia in other chronic diseases classified elsewhere; E11.9 Type 2 diabetes mellitus without complications; K76.0 Fatty (change of) liver, not elsewhere classified; R16.1 Splenomegaly, not elsewhere classified; I10 Essential (primary) hypertension; G20.A1 Parkinson's disease without dyskinesia, without mention of fluctuations
CPT/HCPCS: 36415; 76700-TC; 80048-TC; 80061-TC; 80076-TC; 82232; 82607-TC; 82728-TC; 82784; 82962-TC; 83540-TC; 83921; 84155; 84165; 84443-TC; 85025-TC; 85610-TC; 85730-TC; 86140-TC; 86225; 86235; 86334; 86431-TC; 86706; 86803; 87081-TC; 87340; 97112-TC; 97116-TC; 97530-TC; J1815; J2270; J3490